=== PATIENT | male | born 1975 | race Caucasian/White ===

== ENCOUNTER 2017-05-21 21:48 | Emergency (ER) | payer OTHER ==
[~2017-05-21] VITALS: Ht 175.3 cm; Wt 125.0 kg
[2017-05-21] MEDS ORDERED: ACETAMINOPHEN 325MG TABLET PO STA (23:31)
[2017-05-21] MEDS ORDERED: SODIUM CHLORIDE 0.9% 1,000 ML IV ONE (23:31)
[2017-05-22 00:09] LABS: CHLORIDE 101 mEq/L (98-107)
[2017-05-22 00:13] LABS: INR 1.1; PROTHROMBIN TIME 11.3 sec (9.4-11.6)
[2017-05-22 00:14] LABS: BASOPHILS % 0.3 % (0.0-2.0); EOSINOPHILS % 1.3 % (0.0-5.0); HEMATOCRIT. 35.1 % (42.0-52.0); HEMOGLOBIN. 11.9 g/dL (14.0-18.0); LYMPHOCYTES % 15.7 % (20.0-50.0); MEAN CORPUSCULAR HEMOGLOBIN 26.9 pg (28.0-32.0); MEAN CORPUSCULAR VOLUME 79.1 fL (80.0-94.0); MONOCYTES % 11.2 % (2.0-8.0); NEUTROPHILS % 71.5 % (40.0-76.0); PLATELET 310 x1000/uL (130-400); RED BLOOD CELL COUNT 4.43 mill/uL (4.7-6.1); RED CELL DISTRIBUTION WIDTH 14.1 % (11.6-14.6)
[2017-05-22 00:18] LABS: CARBON DIOXIDE 27 mEq/L (21-32)
[2017-05-22] MEDS ORDERED: PIPERACILLIN SODIUM/TAZOBACTAM 4.5 G in DEXT 5% WATER 100 ML IV SCH (00:30)
[2017-05-22] MEDS ORDERED: VANCOMYCIN 1 G PREMIX 200 ML IV ONE (00:30)
[2017-05-22 02:11] VITALS: BP 174/91
[2017-05-22] MEDS ORDERED: GLIPIZIDE PO (23:52)
[2017-05-22] MEDS ORDERED: SITA1TAB6 PO (23:53)
== END 2017-05-22 02:47 | disposition left against medical advice (07) ==
LOC: ER 21:49
DX: E11.621 Type 2 diabetes mellitus with foot ulcer (principal); L97.529 Non-pressure chronic ulcer of other part of left foot with unspecified severity; E11.65 Type 2 diabetes mellitus with hyperglycemia; I10 Essential (primary) hypertension; Z90.49 Acquired absence of other specified parts of digestive tract
CPT/HCPCS: 36415; 71010; 73630; 80053; 82962; 83605; 85025; 85610; 87040; 96365; 96367; 99285; J2543; J3370; J7030; Z7610; J7060

== ENCOUNTER 2017-05-22 15:35 | Inpatient (IN) | payer OTHER ==
[~2017-05-22] VITALS: Ht 175.3 cm; Wt 125.2 kg
[2017-05-22] MEDS ORDERED: ACETAMINOPHEN 325MG TABLET PO STA (19:18)
[2017-05-22] MEDS ORDERED: PIPERACILLIN/TAZ 3.375G PREMIX 50 ML IV ONE (19:30)
[2017-05-22] MEDS ORDERED: SODIUM CHLORIDE 0.9% 1000ML BAG (SEPSIS BOLUS) IV ONE (19:30)
[2017-05-22] MEDS ORDERED: VANCOMYCIN 1 G PREMIX 200 ML IV ONE (19:30)
[2017-05-22 19:46] LABS: BASOPHILS % 0.4 % (0.0-2.0); EOSINOPHILS % 1.6 % (0.0-5.0); HEMATOCRIT. 33.9 % (42.0-52.0); HEMOGLOBIN. 11.8 g/dL (14.0-18.0); LYMPHOCYTES % 19.5 % (20.0-50.0); MEAN CORPUSCULAR HEMOGLOBIN 27.6 pg (28.0-32.0); MEAN CORPUSCULAR VOLUME 79.5 fL (80.0-94.0); MEAN PLATELET VOLUME 7.9 fl (7.4-10.4); NEUTROPHILS % 68.5 % (40.0-76.0); PLATELET 312 x1000/uL (130-400); RED BLOOD CELL COUNT 4.26 mill/uL (4.7-6.1); RED CELL DISTRIBUTION WIDTH 14.1 % (11.6-14.6)
[2017-05-22 19:49] LABS: CHLORIDE 102 mEq/L (98-107)
[2017-05-22 19:50] LABS: INR 1.1; PROTHROMBIN TIME 11.4 sec (9.4-11.6)
[2017-05-22 19:58] LABS: CARBON DIOXIDE 28 mEq/L (21-32)
[2017-05-22] MEDS ORDERED: SODIUM CHLORIDE 0.9% 1,000 ML IV SCH (20:00)
[2017-05-22 20:32] LABS: CLARITY URINE CLEAR (CLEAR); COLOR URINE YELLOW (YELLOW); GLUCOSE URINE 3+ (NEGATIVE); KETONES URINE TRACE (NEGATIVE); LEUKOCYTE ESTERASE URINE NEGATIVE (NEGATIVE); NITRITE URINE NEGATIVE (NEGATIVE); OCCULT BLOOD URINE 3+ (NEGATIVE); PH URINE 5.5 (4.5-8.0); PROTEIN URINE 2+ (NEGATIVE); SPECIFIC GRAVITY URINE 1.029 (1.005-1.030)
[2017-05-22 21:55] VITALS: BP 156/80
[2017-05-22] MEDS ORDERED: GLIPIZIDE PO (23:52)
[2017-05-22] MEDS ORDERED: SITA1TAB6 PO (23:53)
[2017-05-23] VITALS: BP 149/83
[2017-05-23] MEDS ORDERED: GUAIFENESIN 200MG/10ML SUGAR FREE UDC PO PRN (00:30)
[2017-05-23] MEDS ORDERED: DEXTROSE 50% WATER 50ML SYRINGE IV PRN (00:30)
[2017-05-23] MEDS ORDERED: VANCOMYCIN 1 G PREMIX 200 ML IV SCH (00:30)
[2017-05-23] MEDS ORDERED: DOCUSATE SODIUM 100MG CAPSULE PO PRN (00:30)
[2017-05-23] MEDS ORDERED: ONDANSETRON HCL 4MG/2ML VIAL IV PRN (00:30)
[2017-05-23] MEDS ORDERED: DIPHENHYDRAMINE 50MG/ML VIAL IV PRN (00:30)
[2017-05-23] MEDS ORDERED: IPRATROPIUM/ALBUTEROL 0.5-3(2.5)MG/3ML NEB INH PRN (00:30)
[2017-05-23] MEDS ORDERED: POTASSIUM CHLORIDE 20MEQ TABLET SR PO NR (03:00)
[2017-05-23 04:00] VITALS: BP 161/92
[2017-05-23] MEDS: PIPERACILLIN/TAZ 3.375G PREMIX 50 ML IV SCH ×2 (05:38→11:38)
[2017-05-23] MEDS: VANCOMYCIN 1500MG in DEXTROSE 5% WATER 250ML IV SCH ×3 (05:38→21:30)
[2017-05-23] MEDS: ACETAMINOPHEN 325MG TABLET PO PRN ×3 (05:39→21:46)
[2017-05-23] MEDS: SODIUM CHLORIDE 0.9% INJ 3ML FLUSH IVF SCH ×2 (06:35→13:28)
[2017-05-23] MEDS: BLOOD SUGAR DIAGNOSTIC STRIP TEST SCH ×4 (06:35→21:48)
[2017-05-23 08:00] VITALS: BP 143/87
[2017-05-23] MEDS: ENOXAPARIN 30MG/0.3ML SYR SUBCUT SCH ×2 (09:02→21:30)
[2017-05-23] MEDS: INSULIN LISPRO 100 UNITS/ML SUBCUT SCH ×3 (09:12→21:54)
[2017-05-23] MEDS: CLONIDINE 0.1MG TABLET PO PRN (11:53)
[2017-05-23 12:00] VITALS: BP 152/92
[2017-05-23 16:00] VITALS: BP 126/66
[2017-05-23] MEDS ORDERED: TETANUS, DIPHTHERIA, PERTUSSIS VAC/PF 0.5ML (>7YR OLD) IM ONE (16:00)
[2017-05-23 20:00] VITALS: BP 161/81
[2017-05-24] VITALS: BP 145/70
[2017-05-24] MEDS: PIPERACILLIN/TAZ 3.375G PREMIX 50 ML IV SCH ×4 (00:45→21:22)
[2017-05-24] MEDS ORDERED: SODIUM CHLORIDE 0.9% 1,000 ML IV SCH (01:30)
[2017-05-24] MEDS: MORPHINE SULFATE 4 MG/ML CPJ (NOT FOR IM USE) IV PRN ×5 (02:01→23:37)
[2017-05-24 04:00] VITALS: BP 153/76
[2017-05-24] MEDS: VANCOMYCIN 1500MG in DEXTROSE 5% WATER 250ML IV SCH (05:27)
[2017-05-24] MEDS: BLOOD SUGAR DIAGNOSTIC STRIP TEST SCH ×4 (06:47→21:44)
[2017-05-24 06:48] LABS: BASOPHILS % 0.6 % (0.0-2.0); EOSINOPHILS % 4.2 % (0.0-5.0); HEMATOCRIT. 29.5 % (42.0-52.0); HEMOGLOBIN. 9.9 g/dL (14.0-18.0); LYMPHOCYTES % 30.6 % (20.0-50.0); MEAN CORPUSCULAR HEMOGLOBIN 26.9 pg (28.0-32.0); MONOCYTES % 10.4 % (2.0-8.0); NEUTROPHILS % 54.2 % (40.0-76.0); PLATELET 297 x1000/uL (130-400); RED BLOOD CELL COUNT 3.68 mill/uL (4.7-6.1); RED CELL DISTRIBUTION WIDTH 14.3 % (11.6-14.6)
[2017-05-24] MEDS: INSULIN LISPRO 100 UNITS/ML SUBCUT SCH ×4 (07:50→21:00)
[2017-05-24 08:00] VITALS: BP 152/86
[2017-05-24] MEDS: ENOXAPARIN 30MG/0.3ML SYR SUBCUT SCH ×2 (08:22→21:23)
[2017-05-24 08:23] LABS: CARBON DIOXIDE 28 mEq/L (21-32); CHLORIDE 103 mEq/L (98-107)
[2017-05-24] MEDS ORDERED: LIDOCAINE HCL/PF 2% 20MG/ML 5 ML/VIAL ONE (10:02)
[2017-05-24] MEDS ORDERED: GENTAMICIN SULF 40MG/ML 2ML VIAL ONE (10:02)
[2017-05-24] MEDS ORDERED: BUPIVACAINE HCL/PF 0.5% (5MG/ML) 10ML ONE (10:03)
[2017-05-24] MEDS ORDERED: NORMAL SALINE 0.9% 10 ML SYR ONE ×2 (10:03→12:15)
[2017-05-24] MEDS ORDERED: BACITRACIN 50,000 UNITS/VIAL ONE ×2 (10:03→12:15)
[2017-05-24 12:00] VITALS: BP 107/61
[2017-05-24] MEDS ORDERED: MIDAZOLAM HCL 5 MG/5 ML VIAL ONE (12:19)
[2017-05-24] MEDS ORDERED: HYDROMORPHONE HCL/PF 2MG/ML (OR) ONE (12:19)
[2017-05-24] MEDS ORDERED: HYDROMORPHONE HCL/PF 2MG/ML CPJ IV PRN (12:30)
[2017-05-24] MEDS ORDERED: VITAMINS A AND D OINT TUBE TOP SCH (12:30)
[2017-05-24] MEDS ORDERED: LABETALOL HCL 20MG/4ML CARPUJECT IV PRN (12:30)
[2017-05-24] MEDS ORDERED: MEPERIDINE HCL/PF 25MG/ML CPJ IV PRN (12:30)
[2017-05-24] MEDS ORDERED: ONDANSETRON HCL 4MG/2ML VIAL IV PRN (12:30)
[2017-05-24 16:00] VITALS: BP 149/84
[2017-05-24] MEDS: VANCOMYCIN 1,750 MG in DEXT 5% WATER 250 ML IV SCH (17:04)
[2017-05-24 20:00] VITALS: BP 152/81
[2017-05-25] VITALS: BP 157/90
[2017-05-25] MEDS: VANCOMYCIN 1,750 MG in DEXT 5% WATER 250 ML IV SCH ×3 (01:14→14:20)
[2017-05-25] MEDS: SODIUM CHLORIDE 0.9% INJ 3ML FLUSH IVF SCH ×4 (01:15→21:27)
[2017-05-25 04:00] VITALS: BP 148/94
[2017-05-25] MEDS: PIPERACILLIN/TAZ 3.375G PREMIX 50 ML IV SCH ×4 (05:41→23:58)
[2017-05-25] MEDS: MORPHINE SULFATE 4 MG/ML CPJ (NOT FOR IM USE) IV PRN ×2 (06:04→11:34)
[2017-05-25] MEDS: BLOOD SUGAR DIAGNOSTIC STRIP TEST SCH ×4 (07:51→21:48)
[2017-05-25 08:00] VITALS: BP 165/87
[2017-05-25] MEDS: ENOXAPARIN 30MG/0.3ML SYR SUBCUT SCH ×2 (08:09→21:28)
[2017-05-25] MEDS: INSULIN LISPRO 100 UNITS/ML SUBCUT SCH ×4 (08:16→21:48)
[2017-05-25 12:00] VITALS: BP 165/58
[2017-05-25] MEDS ORDERED: ZOLPIDEM TARTRATE 5MG TABLET PO PRN (15:45)
[2017-05-25] MEDS ORDERED: MAGNESIUM HYDROXIDE 400MG/5ML 30ML UDC PO PRN (15:45)
[2017-05-25 16:03] VITALS: BP 171/83
[2017-05-25] MEDS: HYDROCODONE/ACETAMINOPHEN 10/325MG TABLET PO PRN ×2 (17:01→23:58)
[2017-05-25 20:00] VITALS: BP 167/91
[2017-05-26] VITALS: BP 169/80
[2017-05-26 04:00] VITALS: BP 168/99
[2017-05-26] MEDS: CLONIDINE 0.1MG TABLET PO PRN ×3 (04:39→23:55)
[2017-05-26] MEDS: PIPERACILLIN/TAZ 3.375G PREMIX 50 ML IV SCH ×4 (06:10→23:55)
[2017-05-26] MEDS: SODIUM CHLORIDE 0.9% INJ 3ML FLUSH IVF SCH ×3 (06:13→23:55)
[2017-05-26] MEDS: BLOOD SUGAR DIAGNOSTIC STRIP TEST SCH ×4 (06:35→21:22)
[2017-05-26] MEDS: HYDROCODONE/ACETAMINOPHEN 10/325MG TABLET PO PRN ×3 (07:54→21:35)
[2017-05-26 08:00] VITALS: BP 166/94
[2017-05-26] MEDS: ENOXAPARIN 30MG/0.3ML SYR SUBCUT SCH ×2 (08:05→21:35)
[2017-05-26] MEDS: ZINC SULFATE 220 MG ( 50 ) CAPSULE PO SCH (08:05)
[2017-05-26] MEDS: ASCORBIC ACID 500 MG TABLET PO SCH (08:05)
[2017-05-26] MEDS: POLYETHYLENE GLYCOL 3350 (17GM) 1 DOSE PACK PO SCH ×2 (08:05→08:45)
[2017-05-26] MEDS: MULTIVITAMINS,THER W-MINERALS TABLET PO SCH (08:05)
[2017-05-26] MEDS: INSULIN LISPRO 100 UNITS/ML SUBCUT SCH ×4 (08:23→21:42)
[2017-05-26 12:00] VITALS: BP 166/98
[2017-05-26 16:00] VITALS: BP 151/94
[2017-05-26 20:00] VITALS: BP 149/79
[2017-05-27] VITALS: BP 168/83
[2017-05-27 04:00] VITALS: BP 175/95
[2017-05-27] MEDS: BLOOD SUGAR DIAGNOSTIC STRIP TEST SCH ×4 (06:03→21:00)
[2017-05-27] MEDS: PIPERACILLIN/TAZ 3.375G PREMIX 50 ML IV SCH ×2 (06:03→13:02)
[2017-05-27] MEDS: SODIUM CHLORIDE 0.9% INJ 3ML FLUSH IVF SCH ×3 (06:09→22:12)
[2017-05-27 08:00] VITALS: BP 172/94
[2017-05-27] MEDS: ZINC SULFATE 220 MG ( 50 ) CAPSULE PO SCH (08:55)
[2017-05-27] MEDS: HYDROCODONE/ACETAMINOPHEN 10/325MG TABLET PO PRN ×3 (08:56→22:07)
[2017-05-27] MEDS: MULTIVITAMINS,THER W-MINERALS TABLET PO SCH (08:56)
[2017-05-27] MEDS: ASCORBIC ACID 500 MG TABLET PO SCH (08:56)
[2017-05-27] MEDS: ENOXAPARIN 30MG/0.3ML SYR SUBCUT SCH ×2 (08:57→22:11)
[2017-05-27] MEDS: POLYETHYLENE GLYCOL 3350 (17GM) 1 DOSE PACK PO SCH (09:00)
[2017-05-27] MEDS: INSULIN LISPRO 100 UNITS/ML SUBCUT SCH ×4 (09:05→22:10)
[2017-05-27 12:00] VITALS: BP 163/91
[2017-05-27] MEDS: CLONIDINE 0.1MG TABLET PO PRN (15:37)
[2017-05-27 16:00] VITALS: BP 155/96
[2017-05-27] MEDS: CEFAZOLIN 2,000 MG in DEXT 5% WATER 100 ML IV SCH ×2 (18:00→22:45)
[2017-05-27 20:00] VITALS: BP 155/86
[2017-05-28] VITALS (7 sets, daily range): BP systolic 147–179; BP diastolic 77–107
[2017-05-28] MEDS: CEFAZOLIN 2,000 MG in DEXT 5% WATER 100 ML IV SCH ×3 (05:56→20:01)
[2017-05-28] MEDS: SODIUM CHLORIDE 0.9% INJ 3ML FLUSH IVF SCH ×3 (05:56→20:08)
[2017-05-28] MEDS: HYDROCODONE/ACETAMINOPHEN 10/325MG TABLET PO PRN ×3 (05:59→18:01)
[2017-05-28] MEDS: CLONIDINE 0.1MG TABLET PO PRN ×2 (06:00→13:41)
[2017-05-28] MEDS: BLOOD SUGAR DIAGNOSTIC STRIP TEST SCH ×4 (07:53→20:09)
[2017-05-28] MEDS: ASCORBIC ACID 500 MG TABLET PO SCH (08:56)
[2017-05-28] MEDS: ZINC SULFATE 220 MG ( 50 ) CAPSULE PO SCH (08:56)
[2017-05-28] MEDS: MULTIVITAMINS,THER W-MINERALS TABLET PO SCH (08:56)
[2017-05-28] MEDS: POLYETHYLENE GLYCOL 3350 (17GM) 1 DOSE PACK PO SCH (08:57)
[2017-05-28] MEDS: ENOXAPARIN 30MG/0.3ML SYR SUBCUT SCH ×2 (08:58→20:09)
[2017-05-28] MEDS: INSULIN LISPRO 100 UNITS/ML SUBCUT SCH ×4 (08:59→20:06)
== END 2017-05-28 21:05 | disposition home or self-care (01) | DRG 628 ==
LOC: ER 15:35 → 6EST 19:59 → EDBEDREQSVC 20:02 → EDBEDREQ 20:02 → ENRESERV 20:09
PROVIDERS: ADMIT Internal Medicine; ATTEND Internal Medicine
PROC: 0QBR0ZZ Excision of Left Toe Phalanx, Open Approach (ICD-10-PCS; principal; 2017-05-24 11:00)
PROC: 02HV33Z Insertion of Infusion Device into Superior Vena Cava, Percutaneous Approach (ICD-10-PCS; 2017-05-25)
PROC: B548ZZA Ultrasonography of Superior Vena Cava, Guidance (ICD-10-PCS; 2017-05-25)
DX: E11.69 Type 2 diabetes mellitus with other specified complication (principal); A48.0 Gas gangrene; M86.9 Osteomyelitis, unspecified; E11.621 Type 2 diabetes mellitus with foot ulcer; E11.42 Type 2 diabetes mellitus with diabetic polyneuropathy; L02.612 Cutaneous abscess of left foot; L97.529 Non-pressure chronic ulcer of other part of left foot with unspecified severity; D64.9 Anemia, unspecified; E66.9 Obesity, unspecified; I10 Essential (primary) hypertension; Z79.84 Long term (current) use of oral hypoglycemic drugs; Z83.3 Family history of diabetes mellitus; Z90.49 Acquired absence of other specified parts of digestive tract; Z79.899 Other long term (current) drug therapy; Z22.321 Carrier or suspected carrier of Methicillin susceptible Staphylococcus aureus
CPT/HCPCS: 36415; 36569; 73630; 73721; 76937; 77001; 80048; 80053; 80202; 81001; 82962; 83605; 85025; 85610; 85651; 86140; 87040; 87070; 87075; 87077; 87086; 87186; 87205; 90715; 93005; 93923; 93971; 96365; 96367; 97022; 97116; 97162; 97166; 99285; A4216; C1725; C1893; J0690; J1170; J1580; J1650; J1815; J2250; J2270; J2543; J3370; J3490; J7030; J7040; J7060